=== PATIENT | male | born 1990 | race Caucasian/White ===

== ENCOUNTER 2020-01-09 12:20 | Inpatient (IN) | payer OTHER ==
--- NOTE | 2020-01-09 12:26 | PDOC ---
History of Present Illness - General Chief Complaint: Pain Stated Complaint: ABD, BACK PAIN Time Seen by Provider: 01/09/20 12:23 History Source: Patient Exam Limitations: No Limitations - History of Present Illness Initial Comments: 01/09/20 12:23 HPI 29 YOM with no significant medical history presenting with acute onset of RUQ pain radiating to the back x 1 day, starting yesterday. He states he started having right sided flank/RUQ pain radiating to the back yesterday afternoon after lunch, which he ate chicken and rice. Then the pain worsened in the evening ~7pm. It became more constant, sharp and 10/10. took Alyssa seltzer last night without relief. no history of kidney stones or gallstones. no similar presentation of abdominal symptoms. Denies fever, chills, chest pain, SOB, palpitation, dizziness, weakness, N, V, D, bladder and bowel problems, hematuria, urgency or frequency, focal weakness/paresthesias, leg swelling/pain, rash. No sick contacts or travel. No new changes in medications. No suspicious food intake Allergies: None Past Medical History/PSH: none Social history: Lives with family. No tobacco, ETOH or drug use. Meds: none PMD: from [place] Review of systems Constitutional: no fevers or chills. No weakness HEENT: no headache or dizziness. No congestion. No visual/hearing disturbances. CVS: no cp or syncope. Resp: no sob. No cough. Gastrointestinal: no nausea, vomiting, diarrhea. +abdominal pain. Genitourinary: no urinary sx, hematuria. no urgency or frequency. MUSCULOSKELETAL: No joint pain and swelling. No neck or back pain. SKIN: no redness or skin changes, no discharge, no rash. No wounds. Hematologic: no easy bruising/bleeding. NEUROLOGIC: No headache, dizziness, LOC or altered mental status. No weakness, numbness or tingling. Psych: no anxiety or depression Allergic/Immunologic: no allergies All other systems reviewed and negative, or as documented in HPI. Physical exam General: Well appearing, awake and alert, NAD. HEENT: NCAT, PERRL, EOMI, clear conjunctiva, anicteric, moist mucus membranes, clear oropharynx, no oral lesions.. Neck: neck supple, FROM Resp: CTAB, normal and even respirations, no respiratory distress CVS: RRR, no murmurs, 2+ peripheral pulses throughout, no peripheral edema Abdomen: soft, nondistended, +RUQ tenderness. +right flank tenderness. no ren's sign. no mcburney's point tenderness. no rebound or guarding. Back: normal inspection and ROM. mild right CVAT. MSK: no edema, FORBES x4, ROM intact. No clubbing or cyanosis. normal bulk and tone. Extremities: no calf tenderness Neuro: alert, oriented appropriately; no focal neurologic deficits Psych: Calm and cooperative Skin: warm and well perfused, cap refill <2 sec, normal color, no rash or skin discoloration. 01/09/20 12:51 01/09/20 17:21 Past History - Medical History Allergies/Adverse Reactions: Allergies Allergy/AdvReac Type Severity Reaction Status Date / Time No Known Allergies Allergy Verified 01/09/20 12:24 Home Medications: Ambulatory Orders NK [No Known Home Medication] 01/09/20 ED Treatment Course - LABORATORY CBC & Chemistry Diagram: 01/09/20 12:40 01/09/20 12:58 Medical Decision Making - Medical Decision Making 01/09/20 12:53 Vital Signs Temp Pulse Resp BP Pulse Ox 97.6 F 63 18 135/88 100 01/09/20 12:20 01/09/20 12:20 01/09/20 12:20 01/09/20 12:20 01/09/20 12:20 vitals reviewed, wnl no fever, nontoxic. DDx abdominal pain: Renal colic, biliary colic, metabolic/electrolyte derangements. GERD, PUD, esophageal spasm, pancreatitis, hepatitis, constipation, colitis, gastroenteritis, cholecystitis, UTI, pyelonephritis, hernia, appendicitis, diverticulitis, mesenteric ischemia. msk strain, mesenteric adenitis, psoas abscess. labs and lytes wnl, low K repleted with po 40 meq lipase normal, not pancreatitis. UA neg for blood. no s/s infection RUQ sono to eval for hydro/gallstones/cholecystitis given his focality of sx more in the right flank/RUQ analgesia, reassess 01/09/20 12:54 bedside RUQ sono with large gallstones, but no cholecystitis. no hydronephrosis on right. official RUQ sono confirms stone in the neck, several very large gallstones and sludge, no cholecystitis, normal cbd 2mm surg cs with Dr Gant, agree with plan plan for operative management in the AM at [facility], can put on schedule for 10am npo after midnight, IVF, analgesia. admit to med/surg symphony, Dr Del Rio - signed out case and accepted. 01/09/20 17:21 01/09/20 17:22 Discharge - Discharge Information Problems reviewed: Yes Clinical Impression/Diagnosis: Cholelithiasis Qualifiers: Cholelithiasis location: gallbladder Cholecystitis presence: without cholecystitis Biliary obstruction: without biliary obstruction Qualified Code(s): K80.20 - Calculus of gallbladder without cholecystitis without obstruction Condition: Stable - Admission Yes - Follow up/Referral - Patient Discharge Instructions - Post Discharge Activity
[2020-01-09 12:46] LABS: BASO % 1.4 % (0-2.0); EOS % 0.4 % (0-4.5); HEMATOCRIT 45.8 % (35.4-49); HEMOGLOBIN 15.4 GM/dl (11.7-16.9); LYMPH % 17.8 % (8-40); MCH 30.3 pg (25.7-33.7); MCHC 33.6 g/dl (32.0-35.9); MEAN CELL VOLUME 90.1 fl (80-96); MEAN PLT VOLUME 9.3 fl (7.5-11.1); MONO % 6.2 % (3.8-10.2); NEUT % 74.2 % (42.8-82.8); PLATELET COUNT 239 K/MM3 (134-434); RBC 5.08 M/mm3 (4.00-5.60); RDW 12.7 % (11.9-15.9); WHITE BLOOD COUNT 8.7 K/mm3 (4.0-10.8)
[2020-01-09] MEDS ORDERED: ACETAMINOPHEN 325 MG TABLET (FP) PO ONE (12:50)
[2020-01-09] MEDS ORDERED: ACETAMINOPHEN 325 MG TABLET (FP) ONE (13:03)
[2020-01-09 13:05] LABS: ALBUMIN 4.5 g/dl (3.4-5.0); BILIRUBIN,TOTAL 0.6 mg/dl (0.2-1); CALCIUM 8.9 mg/dl (8.5-10); CREATININE 0.8 mg/dl (0.55-1.3); POTASSIUM 3.2 mmol/L (3.5-5.1); TOT PROT 7.8 g/dl (6.4-8.2)
[2020-01-09] MEDS ORDERED: POTASSIUM CHLORIDE TABS 20 MEQ TABLET.ER (FP) PO ONE ×2 (13:20→14:11)
[2020-01-09] MEDS ORDERED: morphine CARPU-JECT 4 MG/1 ML DISP.SYRIN IVPUSH ONE (16:08)
[2020-01-09] MEDS ORDERED: morphine SULFATE 4 MG/ML VIAL ONE (16:10)
[2020-01-09] MEDS ORDERED: ACETAMINOPHEN 1000 MG/100 ML VIAL (NON FORMULARY) IVPB PRN (21:06)
[2020-01-09] MEDS ORDERED: ONDANSETRON 4 MG/2 ML VIAL IVPUSH PRN (21:07)
[2020-01-09] MEDS: DEXTROSE 5%-0.45% SALINE 1,000 ML IV SCH (22:47)
--- NOTE | 2020-01-09 23:45 | HP ---
CHIEF COMPLAINT: Abdominal Pain PCP: Not on Staff ([place]) HISTORY OF PRESENT ILLNESS: This is a 29 y/o male with no PMHx. Who presents to [place] ED for RUQ pain since 8pm last night. Patient describes the pain as a constant sharp, stabbing pain. He reports that he ate chicken and rice for lunch without incident, then had a cheeseburger for dinner at 7pm, 1hr later the pain began. He denies nausea, vomiting, diarrhea, last BM tonight- brown and soft. Patient denies fever, chills, cough, dizziness, JERRY, CP, palpitations, N/V/D, constipation, melena, hematochezia, hematuria, dysuria. Patient denies sick contacts ER course was notable for: (1) Abdominal US- slight fatty infiltration of the liver. Cholelithiasis without evidence of acute cholecystitis gallbladder sludge and debris is noted. (2) K 3.2 (3) Glucose 111 Recent Travel: 6 weeks ago from [place] PAST MEDICAL HISTORY: Denies PAST SURGICAL HISTORY: Denies Social History: Smoking: Denies Alcohol: Denies Drugs: Denies Lives Alone, employed [employer] (here on 6 week contract) Allergies No Known Allergies Allergy (Verified 01/09/20 12:24) HOME MEDICATIONS: Home Medications Medication Instructions Recorded NK [No Known Home Medication] 01/09/20 REVIEW OF SYSTEMS CONSTITUTIONAL: Absent: fever, chills, diaphoresis, generalized weakness, malaise, loss of appetite, weight change HEENT: Absent: rhinorrhea, nasal congestion, throat pain, throat swelling, difficulty swallowing, mouth swelling, ear pain, eye pain, visual changes CARDIOVASCULAR: Absent: chest pain, syncope, palpitations, irregular heart rate, lightheadedness, peripheral edema RESPIRATORY: Absent: cough, shortness of breath, dyspnea with exertion, orthopnea, wheezing, stridor, hemoptysis GASTROINTESTINAL:abdominal pain Absent: abdominal distension, nausea, vomiting, diarrhea, constipation, melena, hematochezia GENITOURINARY: Absent: dysuria, frequency, urgency, hesitancy, hematuria, flank pain, genital pain MUSCULOSKELETAL: Absent: myalgia, arthralgia, joint swelling, back pain, neck pain SKIN: Absent: rash, itching, pallor HEMATOLOGIC/IMMUNOLOGIC: Absent: easy bleeding, easy bruising, lymphadenopathy, frequent infections ENDOCRINE: Absent: unexplained weight gain, unexplained weight loss, heat intolerance, cold intolerance NEUROLOGIC: Absent: headache, focal weakness or paresthesias, dizziness, unsteady gait, seizure, mental status changes, bladder or bowel incontinence PSYCHIATRIC: Absent: anxiety, depression, suicidal or homicidal ideation, hallucinations. PHYSICAL EXAMINATION Vital Signs - 24 hr 01/09/20 01/09/20 01/09/20 12:20 16:37 18:15 Temperature 97.6 F 97.8 F Pulse Rate 63 60 Pulse Rate [ 69 Left Apical] Respiratory 18 18 16 Rate Blood Pressure 135/88 135/92 Blood Pressure 129/76 [Left Arm] O2 Sat by Pulse 100 98 Oximetry (%) GENERAL: Awake, alert, and fully oriented, in no acute distress. HEAD: Normal with no signs of trauma. EYES: Pupils equal, round and reactive to light, extraocular movements intact, sclera anicteric, conjunctiva clear. No lid lag. EARS, NOSE, THROAT: Ears normal, nares patent, oropharynx clear without exudates. Moist mucous membranes. NECK: Normal range of motion, supple without lymphadenopathy, JVD, or masses. LUNGS: Breath sounds equal, clear to auscultation bilaterally. No wheezes, and no crackles. No accessory muscle use. HEART: Regular rate and rhythm, normal S1 and S2 without murmur, rub or gallop. ABDOMEN: RUQ, Epigastric tenderness, hypoactive bowel sounds. Soft, not distended, no guarding, no rebound, no masses. No hepatomegaly or splenomegaly. MUSCULOSKELETAL: Normal range of motion at all joints. No bony deformities or tenderness. No CVA tenderness. UPPER EXTREMITIES: 2+ pulses, warm, well-perfused. No cyanosis. No clubbing. No peripheral edema. LOWER EXTREMITIES: 2+ pulses, warm, well-perfused. No calf tenderness. No peripheral edema. NEUROLOGICAL: Cranial nerves II-XII intact. Normal speech. Gait not observed. PSYCHIATRIC: Cooperative. Good eye contact. Appropriate mood and affect. SKIN: Warm, dry, normal turgor, no rashes or lesions noted, normal capillary refill. Laboratory Results - last 24 hr 01/09/20 01/09/20 01/09/20 12:36 12:40 12:58 WBC 8.7 RBC 5.08 Hgb 15.4 Hct 45.8 MCV 90.1 MCH 30.3 MCHC 33.6 RDW 12.7 Plt Count 239 MPV 9.3 Absolute Neuts (auto) 6.5 Neutrophils % 74.2 Lymphocytes % 17.8 Monocytes % 6.2 Eosinophils % 0.4 Basophils % 1.4 Sodium 136 Potassium 3.2 L Chloride 100 Carbon Dioxide 25 Anion Gap 11 BUN 15.0 Creatinine 0.8 Est GFR (CKD-EPI)AfAm 138.93 Est GFR (CKD-EPI)NonAf 119.87 Random Glucose 111 H Calcium 8.9 Total Bilirubin 0.6 AST 33 ALT 37 Alkaline Phosphatase 92 Total Protein 7.8 Albumin 4.5 Lipase 100 Urine Color Yellow Urine Appearance Clear Urine pH 7.0 Urine Protein Negative Urine Glucose (UA) Negative Urine Ketones Trace Urine Blood Negative Urine Nitrite Negative Urine Bilirubin Negative Urine Urobilinogen 0.2 Ur Leukocyte Esterase Negative ASSESSMENT/PLAN: This is a 29 y/o male with no significant PMHx. Admitted to /S for Cholelithiasis for further evaluation of their emergent condition. Plan: See Problem List FEN D50.45%NS@125ml/hr Replete lytes prn NPO DVT ppx OOB SCDs Code Status: Full Code Dispo: Requires Inpatient Care Family Medical History Family History: Unremarkable Problem List - Problem (1) Cholelithiasis Assessment/Plan: Abdominal US image, report reviewed- cholelithiasis without evidence of acute cholecystitis, gallstone sludge and/or debris, slight fatty infiltration of liver No leukocytosis, no neutrophilia VSS Surgical Consult- Dr Gant aware- OR tomorrow Chest Xray-pending EKG-pending NPO IVF Pain Management- Ofirmev, Morphine Sulfate prn Monitor CBC, CMP, INR in am Code(s): K80.20 - CALCULUS OF GALLBLADDER W/O CHOLECYSTITIS W/O OBSTRUCTION Qualifiers: Cholelithiasis location: gallbladder Cholecystitis presence: without cholecystitis Biliary obstruction: without biliary obstruction Qualified Code(s): K80.20 - Calculus of gallbladder without cholecystitis without obstruction (2) Abdominal pain Assessment/Plan: Likely secondary to Cholelithiasis Abdominal US showed- cholelithiasis without evidence of acute cholecystitis, gallstone sludge and/or debris, slight fatty infiltration of liver Surgical Consult Continue IVF Ofirmev, Morphine Sulfate prn NPO Code(s): R10.9 - UNSPECIFIED ABDOMINAL PAIN (3) Encounter for screening laboratory testing for COVID-19 virus Assessment/Plan: Low Risk COVID PCR-pending Isolation Precautions Code(s): Z11.59 - ENCOUNTER FOR SCREENING FOR OTHER VIRAL DISEASES Visit type - Emergency Visit Emergency Visit: Yes ED Registration Date: 01/09/20 Care time: The patient presented to the Emergency Department on the above date and was hospitalized for further evaluation of their emergent condition. - New Patient This patient is new to me today: Yes Date on this admission: 01/09/20 - Critical Care Critical Care patient: No
[2020-01-10] MEDS: morphine SULFATE 4 MG/ML VIAL IVPUSH PRN ×2 (00:07→06:02)
[2020-01-10 00:53] VITALS: BMI 30.2
[2020-01-10] MEDS: DEXTROSE 5%-0.45% SALINE 1,000 ML IV SCH (06:04)
[2020-01-10] MEDS ORDERED: D5-1/2NS+40 MEQ KCL - 40 MEQ/1,000 ML INFUS.BAG IV SCH (08:15)
[2020-01-10 09:08] LABS: INR 1.08 (0.83-1.09); PROTHROMBIN TIME (PATIENT) 12.8 SEC (9.7-13.0)
[2020-01-10 09:15] LABS: BASO % 0.3 % (0-2.0); EOS % 0.3 % (0-4.5); HEMATOCRIT 41.9 % (35.4-49); HEMOGLOBIN 14.2 GM/dL (11.7-16.9); LYMPH % 20.6 % (8-40); MCH 30.2 pg (25.7-33.7); MCHC 33.9 g/dl (32.0-35.9); MEAN PLT VOLUME 9.4 fl (7.5-11.1); MONO % 9.9 % (3.8-10.2); NEUT % 68.9 % (42.8-82.8); PLATELET COUNT 225 K/MM3 (134-434); RBC 4.71 M/mm3 (4.00-5.60); RDW 13.9 % (11.9-15.9); WHITE BLOOD COUNT 8.7 K/mm3 (4.0-10.0)
[2020-01-10] MEDS ORDERED: LIDOCAINE HCL/PF 2% SDV 5ML VIAL ONE (10:02)
[2020-01-10] MEDS ORDERED: SUCCINYLCHOLINE CHLORIDE 200 MG/10 ML SYRINGE ONE (10:02)
[2020-01-10] MEDS ORDERED: PROPOFOL 20 ML ONE ×2 (10:02→11:17)
[2020-01-10] MEDS ORDERED: ROCURONIUM BROMIDE 50 MG/5 ML SYRINGE ONE (10:03)
[2020-01-10] MEDS ORDERED: MIDAZOLAM HCL 2 MG/2 ML SINGLE DOSE VIAL ONE (10:03)
--- NOTE | 2020-01-10 10:11 | CONSULT ---
- Consultation REQUESTING PROVIDER: Rosa Caballero MD CONSULT REQUEST: We have been asked to surgically evaluate this patient for acute cholecystitis/cholelithiasis. PCP:Hillary Balderas HISTORY OF PRESENT ILLNESS: ELY who is a 29 y/o male who presents with acute onset of sharp RUQ pain radiating to the back x 1 day, starting 01/08/2020 after he ate chicken and rice. Then the pain worsened in the evening ~7pm. It became more constant, sharp and 10/10. took Alyssa seltzer last night without relief and came to the ED for evaluation. He has no other GI/ c/o. PMHx: none PSHx: none Home Medications Medication Instructions Recorded NK [No Known Home Medication] 01/09/20 Allergies Allergy/AdvReac Type Severity Reaction Status Date / Time No Known Allergies Allergy Verified 01/09/20 12:24 REVIEW OF SYSTEMS: CONSTITUTIONAL: Absent: fever, chills, diaphoresis, generalized weakness, malaise, loss of appetite, weight change CARDIOVASCULAR: Absent: chest pain, syncope, palpitations, irregular heart rate, lightheadedness, peripheral edema RESPIRATORY: Absent: cough, shortness of breath, dyspnea with exertion, wheezing, stridor, hemoptysis GASTROINTESTINAL: Absent: abdominal pain, abdominal distension, nausea, vomiting, diarrhea, constipation, melena, hematochezia GENITOURINARY: Absent: dysuria, frequency, urgency, hesitancy, hematuria, flank pain, genital pain MUSCULOSKELETAL: Absent: myalgia, arthralgia, joint swelling, back pain, neck pain SKIN: Absent: rash, itching, pallor HEMATOLOGIC/IMMUNOLOGIC: Absent: easy bleeding, easy bruising, lymphadenopathy NEUROLOGIC: Absent: headache, focal weakness, paresthesias, dizziness, unsteady gait, seizure, mental status changes, bladder or bowel incontinence PSYCHIATRIC: Absent: anxiety, depression, suicidal or homicidal ideation, hallucinations. PHYSICAL EXAM: GENERAL: Awake, alert, and fully oriented, in no acute distress. HEAD: Normal with no signs of trauma. EYES: PERRL, sclera anicteric, conjunctiva clear. NECK: Normal ROM, supple without lymphadenopathy, JVD, or masses. ABDOMEN: Soft, RUQ tenderness, not distended, normoactive bowel sounds, no guarding, no rebound, no masses. No organomegaly. No hernias. MUSCULOSKELETAL: Normal ROM at all joints. No bony deformities or tenderness. No CVA tenderness. UPPER EXTREMITIES: 2+ pulses, warm, well-perfused. No cyanosis. Cap refill <2 seconds. No peripheral edema. LOWER EXTREMITIES: 2+ pulses, warm, well-perfused. No calf tenderness. No alex pheral edema. NEUROLOGICAL: Normal speech, gait not observed. PSYCH: Cooperative. Good eye contact. Appropriate mood and affect. SKIN: Warm, dry, normal turgor, no rashes or lesions noted. Vital Signs Temperature 98.6 F 01/10/20 06:44 Pulse Rate 65 01/10/20 06:44 Respiratory Rate 18 01/10/20 06:44 Blood Pressure 127/75 01/10/20 06:44 O2 Sat by Pulse Oximetry (%) 99 01/10/20 06:44 Lab Results WBC 8.7 K/mm3 (4.0-10.0) 01/10/20 07:55 RBC 4.71 M/mm3 (4.00-5.60) 01/10/20 07:55 Hgb 14.2 GM/dL (11.7-16.9) 01/10/20 07:55 Hct 41.9 % (35.4-49) 01/10/20 07:55 MCV 89.0 fl (80-96) 01/10/20 07:55 MCHC 33.9 g/dl (32.0-35.9) 01/10/20 07:55 RDW 13.9 % (11.9-15.9) 01/10/20 07:55 Plt Count 225 K/MM3 (134-434) 01/10/20 07:55 INR 1.08 (0.83-1.09) 01/10/20 07:55 Sodium 136 mmol/L (136-145) 01/09/20 12:58 Potassium 3.2 mmol/L (3.5-5.1) L 01/09/20 12:58 Chloride 100 mmol/L (98-107) 01/09/20 12:58 Carbon Dioxide 25 mmol/L (21-32) 01/09/20 12:58 Anion Gap 11 MMOL/L (8-16) 01/09/20 12:58 BUN 15.0 mg/dl (7-18) 08/30/20 12:58 Creatinine 0.8 mg/dl (0.55-1.3) 01/09/20 12:58 Random Glucose 111 mg/dl (74-106) H 01/09/20 12:58 Calcium 8.9 mg/dl (8.5-10) 01/09/20 12:58 Imaging reviewed IMP: acute cholecystitis/cholelithiasis. PLAN: Lap eben possible open; r/b/t/a's d/w the patient in Pashto and informed consent obtained. Florin Gant MD FACS
[2020-01-10] MEDS ORDERED: ceFAZolin SODIUM 1 GM VIAL IVPB ONE (10:47)
[2020-01-10] MEDS ORDERED: ceFAZolin SODIUM 1 GM VIAL ONE (10:48)
[2020-01-10] MEDS ORDERED: KETOROLAC TROMETHAMINE 30 MG/1 ML VIAL ONE (10:48)
[2020-01-10] MEDS ORDERED: DEXAMETHASONE SOD PHOSPHATE 4 MG/1 ML VIAL ONE (10:48)
[2020-01-10 10:53] LABS: ALBUMIN 3.6 g/dl (3.4-5.0); BILIRUBIN,TOTAL 0.9 mg/dL (0.2-1); BLOOD UREA NITROGEN 8.8 mg/dL (7-18); CALCIUM 8.7 mg/dL (8.5-10.1); CREATININE 0.8 mg/dL (0.55-1.3); TOT PROT 7.3 g/dl (6.4-8.2)
[2020-01-10] MEDS ORDERED: BUPIVACAINE HCL/PF 0.5% (5 MG/ML) 30 ML VIAL IJ ONE ×2 (10:54→11:53)
[2020-01-10] MEDS ORDERED: NEOSTIGMINE METHYLSULFATE 0.5 MG/ML - 10 ML MDV ONE (11:17)
[2020-01-10] MEDS ORDERED: GLYCOPYRROLATE 0.2 MG/1 ML VIAL ONE (11:56)
[2020-01-10] MEDS ORDERED: SODIUM CHLORIDE 0.9% P/F 10 ML VIAL IJ ONE (11:56)
--- NOTE | 2020-01-10 12:20 | OP ---
Operative Note - Note: Operative Date: 01/10/20 Pre-Operative Diagnosis: acute cholecystitis/cholelithiasis Operation: laparoscopic cholecystectomy Findings: hydrops of the gallbladder/acute cholecystitis and cholelithiasis Post-Operative Diagnosis: Same as Pre-op Surgeon: Florin Gant Roving Teller: Leonardo Harris Anesthesiologist/TRANSITIONAL LIVING SPECIALIST: Samia Saab Anesthesia: General Specimens Removed: gallbladder and contents Estimated Blood Loss (mls): 20
--- NOTE | 2020-01-10 12:24 | SURG ---
Surgery Door Repairman Note Door Repairman: Leonardo Harris PA-C Date of Service: 01/10/20 Diagnosis: acute cholecystitis/cholelithiasis Procedure: laparoscopic cholecystectomy I was present for the entirety of the operative procedure. For further detail, please refer to operative report. Visit type - Case Type Case Type: ED Admission - Emergency Emergency Visit: Yes ED Registration Date: 01/09/20 Care time: The patient presented to the Emergency Department on the above date a nd was hospitalized for further evaluation of their emergent condition. - New patient This patient is new to me today: Yes Date on this admission: 01/10/20
[2020-01-10] MEDS ORDERED: ACETAMINOPHEN 325 MG TABLET (FP) PO PRN ×2 (12:45→17:10)
[2020-01-10] MEDS ORDERED: oxyCODONE HCL 5 MG TABLET PO PRN (12:45)
--- NOTE | 2020-01-10 14:45 | PN ---
Physical Exam: SUBJECTIVE: Patient seen and examined at bedside. No acute events reported overnight. Patient is scheduled for cholecystectomy this AM. This morning patient has no concerns or complaints. OBJECTIVE: Vital Signs Period Temp Pulse Resp BP Sys/Holder Pulse Ox Last 24 Hr 97.8 F-99.4 F 56-96 12-18 107-160/60-92 96-100 GENERAL: AAOx3, in no acute distress HEENT: NCAT, PERRLA, EOMI, sclera anicteric, conjunctiva clear, oropharynx clear w/o exudates. MMM. NECK: Normal ROM, supple, no lymphadenopathy, JVD, or masses LUNGS: CTABL no wheezes/ rhonchi/ rales. No distress, speaks in full sentences. No increased work of breathing. HEART: RRR, normal S1 S2, no M/R/G, peripheral pulses 2+ and equal b/l ABDOMEN: Soft, RUQ, epigastric tenderness, hypoactive bowel sounds, No guarding or rebound. No hepatomegaly or splenomegaly. MSK: ROM WNL EXTREMITIES: Normal inspection. No peripheral edema. No clubbing or cyanosis. NEUROLOGICAL: CN II-XII intact. Normal speech, normal gait, no focal sensorimotor deficits. SKIN: Warm, Dry, normal turgor, no rashes or lesions noted Laboratory Results - last 24 hr CBC, BMP 01/10/20 07:55 01/10/20 07:55 01/09/20 01/10/20 01/10/20 12:58 07:55 07:55 WBC 8.7 RBC 4.71 Hgb 14.2 Hct 41.9 MCV 89.0 MCH 30.2 MCHC 33.9 RDW 13.9 Plt Count 225 MPV 9.4 Absolute Neuts (auto) 6.0 Neutrophils % 68.9 Lymphocytes % 20.6 Monocytes % 9.9 Eosinophils % 0.3 Basophils % 0.3 Nucleated RBC % 0 PT with INR INR Sodium 139 Potassium 4.0 Chloride 105 Carbon Dioxide 28 Anion Gap 5 L BUN 8.8 Creatinine 0.8 Est GFR (CKD-EPI)AfAm 138.93 Est GFR (CKD-EPI)NonAf 119.87 Random Glucose 160 H Calcium 8.7 Total Bilirubin 0.9 AST 22 ALT 42 Alkaline Phosphatase 81 Total Protein 7.3 Albumin 3.6 Lipase 100 Blood Type Antibody Screen 01/10/20 01/10/20 07:55 09:37 WBC RBC Hgb Hct MCV MCH MCHC RDW Plt Count MPV Absolute Neuts (auto) Neutrophils % Lymphocytes % Monocytes % Eosinophils % Basophils % Nucleated RBC % PT with INR 12.80 INR 1.08 Sodium Potassium Chloride Carbon Dioxide Anion Gap BUN Creatinine Est GFR (CKD-EPI)AfAm Est GFR (CKD-EPI)NonAf Random Glucose Calcium Total Bilirubin AST ALT Alkaline Phosphatase Total Protein Albumin Lipase Blood Type O POSITIVE Antibody Screen Negative Active Medications Generic Name Dose Route Start Last Admin Trade Name Freq PRN Reason Stop Dose Admin Acetaminophen 1,000 mg 01/09/20 21:06 Ofirmev Injection - IVPB 01/10/20 21:06 Q6H PRN PAIN LEVEL 4 - 6 Acetaminophen 325 mg 01/10/20 12:45 Tylenol - PO 01/13/20 12:44 Q4H PRN PAIN LEVEL 1 - 3 Dextrose/Sodium Chloride 40 meq in 1,000 mls @ 125 mls/hr 01/10/20 08:15 01/10/20 09:00 D5-1/2ns+40 Meq Kcl - IV 01/10/20 16:14 125 mls/hr ASDIR PATRICIA Administration Morphine Sulfate 4 mg 01/09/20 21:06 01/10/20 06:02 Morphine Sulfate IVPUSH 4 mg Q6H PRN Administration PAIN LEVEL 7 - 10 Ondansetron HCl 4 mg 01/09/20 21:07 Zofran Injection IVPUSH Q6H PRN NAUSEA AND/OR VOMITING Oxycodone HCl 5 mg 01/10/20 12:45 Roxicodone - PO Q4H PRN PAIN LEVEL 1 - 3 ASSESSMENT/PLAN: 29 y/o male with no significant PMX presenting with RUQ pain for 2x days. Admitted for Cholelithiasis. #Cholelithiasis -Abdominal U/S- cholelithiasis without evidence of acute cholecystitis, gallstone sludge and/or debris, slight fatty infiltration of liver -No leukocytosis, no neutrophilia -Surgical Consult- OR today for cholecystectomy with Dr. Gant -NPO for Surgery today -Ofirmev, Morphine Sulfate PRN for pain control #FEN -fluids- D5 1/2 NS with 40 meq KCl IVF to replete K -electrolytes- monitor K -Nutrition- NPO for surgery today #Prophylaxis -DVT prophylaxis held for surgery Dispo- continue to monitor in m/s Visit type - Emergency Visit Emergency Visit: No - New Patient This patient is new to me today: Yes Date on this admission: 01/10/20 - Critical Care Critical Care patient: No ATTENDING PHYSICIAN STATEMENT I saw and evaluated the patient. I reviewed the resident's note and discussed the case with the resident. I agree with the resident's findings and plan as documented. SUBJECTIVE: OBJECTIVE: ASSESSMENT AND PLAN:
--- NOTE | 2020-01-10 14:58 | PN ---
Teaching Attending Note Name of Resident: Bandar Steven ATTENDING PHYSICIAN STATEMENT I saw and evaluated the patient. I reviewed the resident's note and discussed the case with the resident. I agree with the resident's findings and plan as documented. SUBJECTIVE: s/p lap eben OBJECTIVE: Vital Signs Temperature 98.9 F 01/10/20 13:32 Pulse Rate 75 01/10/20 13:32 Respiratory Rate 17 01/10/20 13:32 Blood Pressure 107/60 01/10/20 13:32 O2 Sat by Pulse Oximetry (%) 100 01/10/20 13:32 PE: PER REsident's note CBCD WBC 8.7 K/mm3 (4.0-10.0) 01/10/20 07:55 RBC 4.71 M/mm3 (4.00-5.60) 01/10/20 07:55 Hgb 14.2 GM/dL (11.7-16.9) 01/10/20 07:55 Hct 41.9 % (35.4-49) 01/10/20 07:55 MCV 89.0 fl (80-96) 01/10/20 07:55 MCHC 33.9 g/dl (32.0-35.9) 01/10/20 07:55 RDW 13.9 % (11.9-15.9) 01/10/20 07:55 Plt Count 225 K/MM3 (134-434) 01/10/20 07:55 MPV 9.4 fl (7.5-11.1) 01/10/20 07:55 CMP Sodium 139 mmol/L (136-145) 01/10/20 07:55 Potassium 4.0 mmol/L (3.5-5.1) 01/10/20 07:55 Chloride 105 mmol/L (98-107) 01/10/20 07:55 Carbon Dioxide 28 mmol/L (21-32) 01/10/20 07:55 Anion Gap 5 MMOL/L (8-16) L 01/10/20 07:55 BUN 8.8 mg/dL (7-18) 01/10/20 07:55 Creatinine 0.8 mg/dL (0.55-1.3) 01/10/20 07:55 Random Glucose 160 mg/dL (74-106) H 01/10/20 07:55 Calcium 8.7 mg/dL (8.5-10.1) 01/10/20 07:55 Total Bilirubin 0.9 mg/dL (0.2-1) 01/10/20 07:55 AST 22 U/L (15-37) 01/10/20 07:55 ALT 42 U/L (13-61) 01/10/20 07:55 Alkaline Phosphatase 81 U/L (45-117) 01/10/20 07:55 Total Protein 7.3 g/dl (6.4-8.2) 01/10/20 07:55 Albumin 3.6 g/dl (3.4-5.0) 01/10/20 07:55 Current Medications Generic Name Dose Route Start Last Admin Trade Name Freq PRN Reason Stop Dose Admin Acetaminophen 1,000 mg 01/09/20 21:06 Ofirmev Injection - IVPB 01/10/20 21:06 Q6H PRN PAIN LEVEL 4 - 6 Acetaminophen 325 mg 01/10/20 12:45 Tylenol - PO 01/13/20 12:44 Q4H PRN PAIN LEVEL 1 - 3 Dextrose/Sodium Chloride 40 meq in 1,000 mls @ 125 mls/hr 01/10/20 08:15 01/10/20 09:00 D5-1/2ns+40 Meq Kcl - IV 01/10/20 16:14 125 mls/hr ASDIR PATRICIA Administration Morphine Sulfate 4 mg 01/09/20 21:06 01/10/20 06:02 Morphine Sulfate IVPUSH 4 mg Q6H PRN Administration PAIN LEVEL 7 - 10 Ondansetron HCl 4 mg 01/09/20 21:07 Zofran Injection IVPUSH Q6H PRN NAUSEA AND/OR VOMITING Oxycodone HCl 5 mg 01/10/20 12:45 Roxicodone - PO Q4H PRN PAIN LEVEL 1 - 3 Home Medications Medication Instructions Recorded NK [No Known Home Medication] 01/09/20 Abdominal U/S- cholelithiasis without evidence of acute cholecystitis, gallstone sludge and/or debris, slight fatty infiltration of liver ASSESSMENT AND PLAN: This patient is a 29yom with no significant PMX presenting with RUQ pain for 2x days. Admitted for Cholelithiasis/acute cholecystitis #POD#0 hydrops of the gallbladder/acute cholecystitis and cholelithiasis; surgery by Dr lundberg [facility], Morphine Sulfate PRN for pain control, clears as per surgery , further management per surgery DVT prophylaxis: SCds possible dc in am , check clearance with surgery for dc
[2020-01-10] MEDS ORDERED: morphine SULFATE 4 MG/ML VIAL IVPUSH PRN (19:43)
[2020-01-10] MEDS ORDERED: ACETAMINOPHEN 1000 MG/100 ML VIAL (NON FORMULARY) IVPB PRN (19:43)
[2020-01-10] MEDS ORDERED: ONDANSETRON 4 MG/2 ML VIAL IVPUSH PRN (19:43)
[2020-01-11 08:40] LABS: BASO % 0.3 % (0-2.0); EOS % 0.1 % (0-4.5); HEMATOCRIT 41.7 % (35.4-49); HEMOGLOBIN 13.8 GM/dL (11.7-16.9); LYMPH % 26.5 % (8-40); MCH 29.5 pg (25.7-33.7); MCHC 33.1 g/dl (32.0-35.9); MEAN CELL VOLUME 89.3 fl (80-96); MEAN PLT VOLUME 9.2 fl (7.5-11.1); MONO % 10.8 % (3.8-10.2); NEUT % 62.3 % (42.8-82.8); PLATELET COUNT 209 K/MM3 (134-434); RBC 4.67 M/mm3 (4.00-5.60); RDW 13.8 % (11.9-15.9); WHITE BLOOD COUNT 9.8 K/mm3 (4.0-10.0)
[2020-01-11 09:07] LABS: BLOOD UREA NITROGEN 13.5 mg/dL (7-18); CALCIUM 8.7 mg/dL (8.5-10.1); CREATININE 1.1 mg/dL (0.55-1.3); MAGNESIUM 2.4 mg/dL (1.8-2.4); PHOSPHOROUS 3.9 mg/dL (2.5-4.9); POTASSIUM 3.7 mmol/L (3.5-5.1)
--- NOTE | 2020-01-11 09:20 | PN ---
Progress Note (short form) - Note Progress Note: GENERAL SURGERY POD #1 Alert. C/o mild incisional tenerness. Adequate pain control with medications ordered. He is OOB and ambulating unassisted. Voiding spontaneously. Tolerating PO clears. Denies n/v/f/c, CP, palpitations, SOB or GARCIA. Afebrile. AVSS Gen: nad ABD: all surgical ports c/d/i. No hematoma LE: all compartments soft. NT. Problem List - Problems (1) S/P laparoscopic cholecystectomy Assessment/Plan: Advanced to regular diet and may be discharged home once tolerates. f/u with Dr. Gant as outlined in DC PLAN tab. Above discussed with my attending and agrees. On behalf of Dr. Gant, thank you for the opportunity to participate in your patient's care. Code(s): Z90.49 - ACQUIRED ABSENCE OF OTHER SPECIFIED PARTS OF DIGESTIVE TRACT (2) Abdominal pain Code(s): R10.9 - UNSPECIFIED ABDOMINAL PAIN (3) Cholelithiasis Code(s): K80.20 - CALCULUS OF GALLBLADDER W/O CHOLECYSTITIS W/O OBSTRUCTION Qualifiers: Cholelithiasis location: gallbladder Cholecystitis presence: without cho lecystitis Biliary obstruction: without biliary obstruction Qualified Code(s): K80.20 - Calculus of gallbladder without cholecystitis without obst ruction
--- NOTE | 2020-01-11 13:11 | OP ---
DATE OF OPERATION: 01/10/2020 PREOPERATIVE DIAGNOSIS: Acute cholecystitis and cholelithiasis. PREOPERATIVE DIAGNOSIS: Acute cholecystitis and cholelithiasis. PROCEDURE: Laparoscopic cholecystectomy. SURGEON: Florin Gant MD COTTON BALL BAGGER: Leonardo Harris PA-C ANESTHESIA: General. OPERATIVE FINDINGS: Hydrops of the gallbladder and acute cholecystitis and cholelithiasis. The rest of the findings were unremarkable. DESCRIPTION OF PROCEDURE: The patient was placed on the operating room table in supine position. After the induction of general anesthesia, the patient's abdomen was prepped with ChloraPrep and draped in sterile fashion. Time-out was taken and then pneumoperitoneum established above the umbilicus using a Veress needle. Once 15 mm of intra-abdominal pressure was obtained, a 5-mm port was placed at the umbilicus. Additional lateral 5-mm ports and a subxiphoid 12-mm port were placed and laparoscopy carried out, and the previously noted findings were observed. The gallbladder was placed on cephalad and lateral traction, and dissection was begun at the neck of the gallbladder where the peritoneum was opened medially and laterally using blunt and sharp dissection and electrocautery. Dissection continued in the triangle of Calot where the cystic duct was identified coursing from the neck of the gallbladder distally to the common bile duct. It was dissected proximally and distally for length. Similarly, the artery was similarly identified and dissected. A critical view of safety was taken, and then the cystic duct divided proximally and distally using Endo Kesha after it was clipped twice proximally and distally with large hemoclips. The artery was similarly clipped and divided. Hemostasis was checked for and noted to be good and then the gallbladder was removed from the liver bed in a retrograde fashion using electrocautery. Prior to removal from the edge of the liver, hemostasis was again verified and then the gallbladder removed from the edge of the liver, placed in an EndoCatch, and brought out through the subxiphoid port. Pneumoperitoneum was reestablished, hemostasis verified again, and then the 5-mm lateral and subxiphoid ports were removed under laparoscopic vision without evidence of bleeding from the port sites. The umbilical port was removed and the pneumoperitoneum evacuated. All port sites were infiltrated with 0.5% Marcaine and the skin edges closed with 4-0 Biosyn in a subcuticular and continuous fashion. Steri-Strips and Band-Aid dressings were placed and the procedure terminated at this point and the patient aroused from general anesthesia and transferred to the post anesthesia care unit in stable condition awake and alert. ESTIMATED BLOOD LOSS: 20 mL. REPLACEMENTS: Crystalloid. DRAINS: None. SPECIMENS: Gallbladder and contents to pathology. I, Florin Gant, was physically present in the operating room from the time the patient was placed on the operating room table until he was transferred to the post anesthesia care unit in [employer]. MD MILTON Sanchez/[id number] MTDD
--- NOTE | 2020-01-11 14:31 | PATH ---
Surgical Pathology Report Patient Name: YURI POOL Med. Rec. #: [id number] /Age/Gender: 1990 (Age: 29) / M Account: [id number] Location: [address] [place] [address]/[facility] Taken: 01/10/2020 Received: 01/10/2020 Reported: 01/11/2020 Physicians: Florin Gant MD Specimen(s) Received GALLBLADDER Clinical History Cholelithiasis Final Diagnosis GALLBLADDER, CHOLECYSTECTOMY: ACUTE AND CHRONIC CHOLECYSTITIS. CHOLELITHIASIS. Electronically Signed Romy Walsh M.D. Gross Description Received in formalin, labeled "gallbladder," is a 13.4 x 2.7 x 2.7 cm. gallbladder with a 0.2 cm. in length portion of cystic duct attached. The outer surface is ybarra-pink with a focal defect and varies from smooth to shaggy. The lumen contains red blood as well as abundant yellow, irregular to fragmented choleliths ranging from 0.1-2.4 cm in greatest dimension. The mucosa is hyperemic and focally eroded. The wall of the gallbladder is focally edematous and ranges from 0.1-0.5 cm. in thickness. [employer] sections are submitted in one cassette. 01/10/2020 [facility]01/10/2020
[2020-01-11 14:36] VITALS: BP 114/64; PULSE 67; TEMP 98.1
--- NOTE | 2020-01-11 14:42 | PN ---
Teaching Attending Note Name of Resident: Sejal Richardson ATTENDING PHYSICIAN STATEMENT I saw and evaluated the patient. I reviewed the resident's note and discussed the case with the resident. I agree with the resident's findings and plan as documented. SUBJECTIVE: Patient sitting up, no complaints OBJECTIVE: Vital Signs Period Temp Pulse Resp BP Sys/Holder Pulse Ox Last 24 Hr 97.8 F-99.2 F 53-97 18-18 108-119/61-74 87-100 GENERAL: Awake, alert, in no acute distress. HEAD: Normal with no signs of trauma. EYES: Pupils equal, round and reactive to light, extraocular movements intact, sclera anicteric, conjunctiva clear. EARS, NOSE, THROAT: Ears normal, nares patent, Moist mucous membranes. NECK: Normal range of motion, No JVD, LUNGS: Breath sounds equal, clear to auscultation bilaterally. No wheezes, and no crackles. No accessory muscle use. HEART: Regular rate and rhythm, normal S1 and S2 without murmur, rub or gallop. ABDOMEN: Soft, nontender, not distended, normoactive bowel sounds, no guarding, no rebound, Surgical incision sites noted MUSCULOSKELETAL: Normal range of motion at all joints. No bony deformities or tenderness. No CVA tenderness. EXTREMITIES: 2+ pulses, warm, well-perfused. No calf tenderness. No peripheral edema. NEUROLOGICAL: Cranial nerves II-XII intact. Normal speech. PSYCHIATRIC: Cooperative. Good eye contact. Appropriate mood and affect. SKIN: Warm, dry, normal turgor, no rashes or lesions noted. ASSESSMENT AND PLAN: 29y/o M who presents with RUQ pain 2/2 cholecystitis Cholecystitis: s/p cholecystectomy Patient feels well, sitting up eating has no complaints Plan to discharge home today
--- NOTE | 2020-01-11 14:55 | DS ---
Physical Exam: SUBJECTIVE: Patient seen and examined at bedside. No acute events reported overnight. This morning the patient states that he has pain at his incision sites. No other concerns or complaints at this time. OBJECTIVE: Vital Signs Period Temp Pulse Resp BP Sys/Holder Pulse Ox Last 24 Hr 97.8 F-99.2 F 53-97 18-18 108-119/61-74 87-100 PHYSICAL EXAM GENERAL: AAOx3, in no acute distress HEENT: NCAT, PERRLA, EOMI, sclera anicteric, conjunctiva clear, oropharynx clear w/o exudates. MMM. NECK: Normal ROM, supple, no lymphadenopathy, JVD, or masses LUNGS: CTABL no wheezes/ rhonchi/ rales. No distress, speaks in full sentences. No increased work of breathing. HEART: RRR, normal S1 S2, no M/R/G, peripheral pulses 2+ and equal b/l ABDOMEN: Soft, tenderness at surgery incision sites, hypoactive bowel sounds, No guarding or rebound. No hepatomegaly or splenomegaly. MSK: ROM WNL EXTREMITIES: Normal inspection. No peripheral edema. No clubbing or cyanosis. NEUROLOGICAL: CN II-XII intact. Normal speech, normal gait, no focal sensorimotor deficits. SKIN: Warm, Dry, normal turgor, no rashes or lesions noted LABS Laboratory Results - last 24 hr CBC, BMP 01/11/20 07:53 01/11/20 07:53 01/11/20 01/11/20 07:53 07:53 WBC 9.8 RBC 4.67 Hgb 13.8 Hct 41.7 MCV 89.3 MCH 29.5 MCHC 33.1 RDW 13.8 Plt Count 209 MPV 9.2 Absolute Neuts (auto) 6.1 Neutrophils % 62.3 Lymphocytes % 26.5 D Monocytes % 10.8 H Eosinophils % 0.1 Basophils % 0.3 Nucleated RBC % 0 Sodium 144 Potassium 3.7 Chloride 108 H Carbon Dioxide 30 Anion Gap 6 L BUN 13.5 Creatinine 1.1 Est GFR (CKD-EPI)AfAm 103.85 Est GFR (CKD-EPI)NonAf 89.61 Random Glucose 94 Calcium 8.7 Phosphorus 3.9 Magnesium 2.4 HOSPITAL COURSE: 29 y/o male with no significant PMX presenting with RUQ pain for 2x days. Admitted for Cholelithiasis. Abdominal U/S done upon admission revealed cholelithiasis without evidence of acute cholecystitis, gallstone sludge and/or debris, slight fatty infiltration of liver. Patient did not have any leukocytosis or neutrophilia during his stay. Surgery was consulted and the patient underwent cholecystectomy with Dr. Gant on 01/10/2020. The patient had Ofirmev, Morphine Sulfate PRN for pain control during his stay. The day after the procedure the patient was discharged with Percocet for pain control with outpatient followup with Dr. Gant within 1 week. Date of Admission:01/09/20 01/10/2020- CXR- No sign of infiltrate or failure. Possible nodular densities right base. Follow-up recommended. 01/09/2020- Abdomen US limited-Slight fatty infiltration of the liver Cholelithiasis without evidence of acute cholecystitis gallbladder sludge and/or debris also noted Recommend clinical correlation and short-term follow-up Date of Discharge: 01/11/20 Minutes to complete discharge: 36 Discharge Summary Problems reviewed: Yes Reason For Visit: [id number] Current Active Problems Abdominal pain (Acute) Cholelithiasis (Acute) Encounter for screening laboratory testing for COVID-19 virus (Acute) S/P laparoscopic cholecystectomy (Acute) Condition: Stable - Instructions Diet, Activity, Other Instructions: Dr. Gant Discharge Instructions Dear YURI LOPEZ, Post Operative Instructions Physical activity Resume your normal everyday activity as tolerated no heavy lifting or exercise until seen by your surgeon. You may walk unlimited amounts of and climb stairs. You may resume driving the car when you feel safe and comfortable behind the wheel. Wound care If you have a bandage, leave it on, and keep dry for 48 - 72 hours. After that time discard the outer bandage. If there are tapes on the skin under the outer bandage, leave them in place. They will peel off in the next 7 to 10 days. Do Not peel them off. You may shower 2 days after surgery. If there are tapes present on the skin, they can get wet. Diet There are no dietary restrictions. Eat healthy, high-fiber foods. Drink 6 to 8 glasses of liquid each day. This will assist in keeping your bowels are regular. Pain management You may take Tylenol or acetaminophen or Ibuprofen (for example, Motrin, Advil etc.) Any pain prescription medication ordered should be taken as prescribed for moderate to severe pain. Call Dr. Gant for any of the following: Severe pain not relieved by medication Fever of 101 or higher Excessive bleeding or drainage on dressing Inability to urinate Call the office at [phone] for a post operative appointment in 7 - 10 days. Your visit: You were admitted to the hospital for abdominal pain. You were found to have an inflamed gallbladder. You were treated with antibiotics and a surgery to remove your gallbladder with improvement of your symptoms. -During your stay, we did an ultrasound of your abdomen which showed you have a fatty liver. Please follow up with your Primary Care Provider and go over your liver function tests. Medications changes: -Please take 1 pill of Percocet as needed for pain every 4 hours. -Continue to take all other home medications as prescribed. Follow up: - Please follow-up with your General Surgeon, Dr. Gant, in 1 week. - Visit with your Primary Care Provider in 2 weeks. If you do not have a primary care provider you may make an appointment with Dr. Casarez at the [facility] clinic located at [address] [place] [address] ([phone]). Additional Instructions: -You are being discharged to your home. -Please return to the Emergency Department if you experience worsening pain, fevers, chills, shortness of breath, or chest pain, or if you experience any worsening, new or concerning symptoms. Referrals: Stephen Casarez MD [Staff Physician] - 1 Week Florin Gant MD [Staff Physician] - 1 Week Disposition: HOME - Home Medications Comprehensive Discharge Medication List: Ambulatory Orders Oxycodone HCl/Acetaminophen [Percocet 5-325 mg Tablet] 1 combo PO Q4H PRN #20 tablet MDD 6 01/11/20 This patient is new to me today: No Emergency Visit: No Critical Care patient: No - Discharge Referral Referred to [facility] No ATTENDING PHYSICIAN STATEMENT I saw and evaluated the patient. I reviewed the resident's note and discussed the case with the resident. I agree with the resident's findings and plan as documented. SUBJECTIVE: OBJECTIVE: ASSESSMENT AND PLAN:
== END 2020-01-11 17:26 | disposition home or self-care (01) | DRG 263 ==
LOC: FER 12:20 → J6S 18:45
PROVIDERS: ADMIT Student in an Organized Health Care Education/Training Program; ATTEND Internal Medicine
PROC: 0FT44ZZ Resection of Gallbladder, Percutaneous Endoscopic Approach (ICD-10-PCS; principal; 2020-01-10 10:00)
DX: K80.00 Calculus of gallbladder with acute cholecystitis without obstruction (principal); K76.0 Fatty (change of) liver, not elsewhere classified; R10.11 Right upper quadrant pain
CPT/HCPCS: 36415; 71046-TC-FY; 76705-TC; 80048; 80053; 81003; 83690; 83735; 84100; 85025; 85610; 86850; 86900; 86901; 87086; 88304-TC; 94760; 97116-GP; 97161-GP; 99285-25; U0003